=== PATIENT | female | born 1960 | race Caucasian/White ===

== ENCOUNTER 2018-06-22 12:12 | Day surgery (SDC) | payer OTHER, SELFPAY ==
[2018-06-22 14:18] VITALS: BP 135/85; PULSE 68; RESP 16; TEMP 36.2; O2SAT 97; BMI 39.9
[2018-06-22] MEDS: SODIUM CHLORIDE 0.9% 1,000 ML 200 ML IV (14:27)
--- NOTE | 2018-06-22 15:58 | PM.PREOP ---
Pre-operative Note Interval Note Pre-op Check: Yes History & Physical Reviewed by Physician and Yes Exam Performed Changes: No ASA Class (for procedural sedation): I
[2018-06-22] MEDS: MIDAZOLAM 5 MG/5 ML VIAL IV (16:26)
[2018-06-22] MEDS: fentaNYL 250 MCG/5 ML INJ IV (16:26)
[2018-06-22 16:32] VITALS: BP 205/109; PULSE 94; RESP 17; TEMP 36.2; O2SAT 96
--- NOTE | 2018-06-22 16:34 | PM.OP.ENDO ---
Operative Date/Time/Diagnoses Date of procedure: 06/22/18 Time of procedure: 16:30 Pre-op diagnosis: Rectal bleeding. Screening exam. Post-op diagnosis: same (Sigmoid diverticulosis. Small rectal lesions suspect benign lymphoid follicles.) Procedure & Clinicians Study performed: Colonoscopy with cold biopsy Same procedure as scheduled: Yes Indications: Intermittent rectal bleeding. Due for screening exam. Surgeon: Gamaliel Kc Procedure Notes SCOAP/Timeout: Performed. Sugar was elevated and patient given insulin. Procedure in detail: The patient was placed in the left lateral decubitus position and underwent IV sedation directed by the surgeon consisting of fentanyl and Versed. Digital exam was remarkable for decreased sphincter tone. The scope was inserted and advanced through the rectum into the sigmoid, descending, transverse, and ascending colon. I noted diverticulosis of the sigmoid colon. There was a fair amount of tortuosity. We had to apply pressure to reach the cecum.. The cecum was reached identified by the ileocecal valve and the appendiceal opening. The scope was gradually brought out. No Polyps were found until I reach the rectum. There were very small raised lesions and I biopsied several of them. They appeared to be benign lymphoid follicles and were numerous.. The scope ultimately was retroflexed in the rectum. The appearance was[fairly normal.]. The scope was removed and the patient tolerated the procedure well. Source of bleeding not obvious. Scope withdrawal time: Six and 0.5 min Sedation minutes: 20 Recommendations: Colonscopy in 5 years Follow up: as needed Disposition: PACU
[2018-06-22 16:35] VITALS: BP 170/89; PULSE 79; RESP 16; O2SAT 99
[2018-06-22 16:42] VITALS: BP 156/90; PULSE 76; RESP 14; O2SAT 97
[2018-06-22 17:05] VITALS: BP 138/85; PULSE 71; RESP 16; TEMP 36.6; O2SAT 96
--- NOTE | 2018-06-22 17:18 | SUR.PHASEII ---
pt to opd from recovery , resting, felt nauseous and vomited a small amount of emesis at 1700, at 1705 felt better, taking gingerale and crackers, spouse at side
[2018-06-22 17:32] VITALS: BP 139/76; PULSE 61; RESP 16; TEMP 36.2; O2SAT 99
--- NOTE | 2018-06-22 17:48 | SUR.PHASEII ---
pt had small emesis at 1730, felt better after , states she is ready to go
== END 2018-06-22 17:40 | disposition home or self-care (01) ==
PROVIDERS: Visit Provider Specialist
PROC: 0DJD8ZZ Inspection of Lower Intestinal Tract, Via Natural or Artificial Opening Endoscopic (ICD-10-PCS; CPT 45378; principal; 2018-06-22 15:00)
DX: K62.5 Hemorrhage of anus and rectum (principal); R10.9 Unspecified abdominal pain
CPT/HCPCS: 45378; 99152; J2250; J3010

== ENCOUNTER → 2018-07-02 07:43 | Outpatient (CLI) | payer OTHER, SELFPAY ==
--- NOTE | 2018-07-02 07:44 | DI.US.S_ITS ---
PROCEDURE: US THYROID INDICATIONS: Mass seen on CT. Post right lobectomy TECHNIQUE: Real-time scanning was performed of the thyroid gland, with image documentation. COMPARISON: Outside Facility, RG, CT THORACIC SPINE, 05/24/2018, 13:58. Outside Facility, RG, CT ANGIO CHEST, 05/24/2018, 14:05. FINDINGS: Right: Thyroid lobe measures 3.7 x 1.7 x 1.6 cm. Left: Thyroid lobe measures 5.8 x 2.7 x 3.4 cm. Isthmus: 3 mm thick. Nodule number: 1 Location: Right superior thyroid Size: 1.6 x 1.7 x 2 cm. Composition: Solid Echogenicity: Hypoechoic Shape: wider than tall. Margins: Smooth Echogenic foci: Larger calcifications Total points: 5 ACR TI-RADS category: 4, moderately suspicious Nodule number: 2 Location: Right inferior thyroid Size: 1.2 x 0.9 x 1.4 cm. Composition: Solid Echogenicity: Hypoechoic Shape: wider than tall. Margins: Smooth Echogenic foci: None Total points: 4 ACR TI-RADS category: 4, moderately suspicious Nodule number: 3 Location: Superior left thyroid Size: 1.8 x 1.6 x 1.6 cm. Composition: Solid Echogenicity: Isoechoic Shape: wider than tall. Margins: Smooth Echogenic foci: None Total points: 3 ACR TI-RADS category: 3, mildly suspicious Nodule number: 4 Location: Inferior left thyroid Size: 3.4 x 2.5 x 3 cm. Composition: Solid Echogenicity: Hypoechoic Shape: wider than tall. Margins: Smooth Echogenic foci: Punctate Total points: 7 ACR TI-RADS category: 5, highly suspicious IMPRESSION: Bilateral thyroid nodules are seen, with the largest, most suspicious nodule seen within the inferior left thyroid, which corresponds to the outside CT findings. By published criteria, an ultrasound-guided biopsy is recommended for the largest nodule within each thyroid lobe. TI-RADS 1 (benign): 0 points. FNA not needed. TI-RADS 2 (not suspicious): 2 points. FNA not needed. TI-RADS 3 (mildly suspicious): 3 points. * FNA if 2.5 cm or larger, follow up if 1.5 cm or larger (at 1, 3, and 5 years). TI-RADS 4 (moderately suspicious): 4-6 points. * FNA if 1.5 cm or larger, follow up if 1 cm or larger (at 1, 2, 3, and 5 years). TI-RADS 5 (highly suspicious): 7 points or more. * FNA if 1 cm or larger, follow up if 0.5 cm or larger (every year for 5 years). Dictated by: Monty Bolanos M.D. on 07/02/2018 at 9:39 Approved by: Monty Bolanos M.D. on 07/02/2018 at 9:56
== END ==
PROVIDERS: PCP Family Medicine; Visit Provider Specialist
DX: E04.2 Nontoxic multinodular goiter (principal)
CPT/HCPCS: 76536

== ENCOUNTER → 2018-08-07 13:33 | Outpatient (CLI) | payer OTHER, SELFPAY ==
--- NOTE | 2018-08-07 | PATH_ITS ---
Note [facility] Accession Number: [id number] TESTS RESULT FLAG UNITS REF RANGE LAB Clinician Provided Cytology Information No. of containers..01 ThinPrep Vial No. of containers..00 Previously Prepared Cytology Slide LEFT THYROID NODULE DIAGNOSIS: LEFT THYROID NODULE NEGATIVE FOR MALIGNANT CELLS. SPECIMEN CONSISTS OF BENIGN FOLLICULAR CELLS, HEMOSIDERIN-LADEN MACROPHAGES, COLLOID, AND BLOOD. THIS PATTERN IS CONSISTENT WITH A BENIGN FOLLICULAR NODULE. Pathologist ICD10: 02 E04.1 02 Sreekanth Kate MD, Pathologist NPI- [id number] Stephany Jimenez, Garbage Collector Driver ([facility]) 01 30 CC, RED, CLEAR RECEIVED: 5 ALCOHOL FIXED AND 5 QUICK STAINED SLIDES WITH 1RNA VIAL FOR FURTHER TESTING. /VDU FLAG LEGEND: L-Low Normal,H-High Normal,LL-Alert Low,HH-Alert High <-Panic Low,>-Panic High,A-Abnormal,AA-Critical Abnormal Performed at: 01 =Z [facility] [address], [place] [address] Jaciel Iyer MD, 02 [facility] [address] [place] [id number] Juan Manuel Christensen MD, Performed at: 01 [facility] [address], [place], [place] [id number] MD Jaciel Iyer MD Phone: [phone]
--- NOTE | 2018-08-07 | PATH_ITS ---
Note [facility] Accession Number: [id number] TESTS RESULT FLAG UNITS REF RANGE LAB Clinician Provided Cytology Information No. of containers..01 ThinPrep Vial No. of containers..10 Previously Prepared Cytology Slide RIGHT THYROID NODULE DIAGNOSIS: 02 RIGHT THYROID NODULE NEGATIVE FOR MALIGNANT CELLS. SPECIMEN CONSISTS OF BENIGN FOLLICULAR CELLS, HEMOSIDERIN-LADEN MACROPHAGES, COLLOID, AND BLOOD. THIS PATTERN IS CONSISTENT WITH A BENIGN FOLLICULAR NODULE. Pathologist ICD10: 02 E04.1 02 Sreekanth Kate MD, Pathologist NPI- [id number] Stephany Jimenez, Med Peds ([facility]) 01 30 CC, RED, CLEAR RECEIVED: 5 ALCOHOL FIXED AND 5 QUICK STAINED SLIDES WITH 1RNA VIAL FOR FURTHER TESTING. /VDU FLAG LEGEND: L-Low Normal,H-High Normal,LL-Alert Low,HH-Alert High <-Panic Low,>-Panic High,A-Abnormal,AA-Critical Abnormal Performed at: 01 =Z [facility] [address], [place] [address] Jaciel Iyer MD, 02 [facility] [address] [place] [phone] Juan Manuel Christensen MD, Performed at: 01 [facility] [address], [place], [place] [id number] MD Jaciel Iyer MD Phone: [phone]
--- NOTE | 2018-08-07 13:36 | DI.US.S_ITS ---
PROCEDURE: US FINE NEEDLE ASPIRATION INDICATIONS: FNA RIGHT THYROID NODULE TECHNIQUE: The indications, alternatives, benefits, risks, and complications of the procedure were explained to the patient. Written informed consent was obtained and placed in the chart. The thyroid region was examined sonographically and a site was chosen for ultrasound guided percutaneous sampling. The skin was prepared and draped in the usual fashion, and anesthetized with 1% lidocaine infiltrated from the skin down to the thyroid gland. Multiple passes were then performed, with contents emptied into an appropriate pathology specimen container. A bandage was applied to the area of access at completion of the study. COMPARISON: None. FINDINGS: Location(s) of lesion(s) sampled: Right lobe, upper pole [place]: 25 gauge hypodermic needles. Number of passes: 5 Medications: 1% lidocaine for local anaesthesia. Complications: None. IMPRESSION: Successful ultrasound-guided thyroid nodule fine needle aspiration, with cytology results pending. Please see chart below for management recommendations based on cytology results. [facility] ReportingRecommendationsNon-diagnostic* Repeat US-guided FNA, with on-site cytology evaluation if possible. * Repeated non-diagnostic nodules without high suspicion US features: close observation vs surgical consult. * Consider surgery if nodule has high suspicion US features, grows >20% in 2 dimensions on followup, or patient has clinical risk factors for malignancy. Benign* If nodule has high suspicion US features: repeat US and FNA within 12 months. * If nodule has low to intermediate suspicion US features: repeat US at 12-24 months. If nodule grows (20% increase in at least 2 dimensions, with minimal increase of 2 mm or >50% change in volume), or development of new suspicious US features, then repeat FNA or continue followup. * If nodule has very low suspicion US features: followup US at >24 months. Atypia of undetermined significance, follicular lesion of undetermined significanceRepeat FNA, molecular testing, followup US, or surgical consult.Follicular neoplasm, suspicious for follicular neoplasmSurgical consult; also consider molecular testing. Suspicious for malignancySurgical consult.MalignantSurgical consult. Dictated by: Eduar Vásquez M.D. on 08/07/2018 at 16:02 Approved by: Eduar Vásquez M.D. on 08/07/2018 at 16:04
== END ==
PROVIDERS: PCP Family Medicine; Visit Provider Specialist
DX: E04.1 Nontoxic single thyroid nodule (principal)
CPT/HCPCS: 10022; 76942